=== PATIENT | female | born 1985 | race Caucasian/White ===

== ENCOUNTER 2023-08-24 00:32 | Day surgery (SDC) | payer OTHER, SELFPAY ==
--- NOTE | 2023-08-16 10:40 | SUR.PREOP ---
Report to the Outpatient Waiting Room, entrance under the green pavilion located off [facility], at time 1130 on date 08/24/23. Planned Procedure Time: 1330. Time changes happen often and if your time is changed the preop area will call you the afternoon before. - You and your visitor will be asked to self-screen and do not enter if you have any COVID symptoms. - A mask is optional within the hospital at this time. Patients may have clear liquids (water, carbonated beverages, clear teas, apple juice) until 3 hours prior to surgery with a maximum of 20 ounces. - NO CLEAR LIQUIDS AFTER 1030 - No food from midnight until time of surgery - Infants may have breast milk until 4 hours before surgery, infant formula 6 hours prior to surgery. - Children will be allowed to drink immediately following surgery. If applicable, please bring a bottle or sippy cup to assist with drinking. Juice, water, soda, and popsicles are readily available. For infants on formula, please bring formula the day of surgery. Pacifiers are allowed. Take the following medications with a SIP of water the morning of surgery: FLUOXETINE DO NOT STOP ANY OF YOUR OTHER PRESCRIPTION MEDICATIONS PRIOR TO SURGERY ?EXCEPT THE FOLLOWING Medications to discontinue per physician N/A Date to take last dose Please no make-up, nail trinidadian, hairspray, perfume, deodorant, or body powder the day of surgery. No jewelry (including any body piercings) or valuables the day of surgery, leave them at home. Please take a shower or bath the night before, or the morning of, surgery with an antibacterial soap. Wear comfortable, loose fitting clothing. Children are encouraged to wear pajamas. - Jewelry must be removed prior to entering the operating room. Rings and piercings that are not removed may be cut off. - The hospital will not accept responsibility for valuables. - Please leave all valuables, including medications, at home the day of surgery. If you are going home after surgery, a licensed automobile drivers must drive you home. - NO public transportation without another adult if you receive anesthesia. - We recommend that an adult stay with you for 24 hours following discharge. - We also recommend that you do not drive, make important decision, drink alcoholic beverages, or take any drugs that were not prescribed by your health care provider for at least 24 hours after your discharge time. For Pediatric surgeries, we recommend two adults accompany the child home. Follow any additional instructions given to you from your surgeon. If you or anyone in your household have experienced Covid symptoms in the past week, please notify your surgeon or the nurse liaison at the phone number below for possible testing. Telephone instructions given to DARRYN RANGEL and asked if any additional questions and then verbalized understanding. Patient advised to call surgeon office or pre surgery nurse liaison [phone] if any additional questions.
[2023-08-16 10:49] VITALS: BMI 28.1
[2023-08-24 12:18] VITALS: BP 109/72; PULSE 68; RESP 18; TEMP 36.2; O2SAT 100
[2023-08-24] MEDS: LACTATED RINGERS 1,000 ML 30 ML IV CONT (12:54)
--- NOTE | 2023-08-24 13:47 | P.PNAN_ITS ---
Anes - Initial Pre Proc Eval Procedure: Operation Date: 08/24/23 14:00 Proposed Procedures p Excision of Vaginal Cyst - Ok Chavira MD Date/Time: 08/24/23 13:47 Surgeon: Ok Chavira MD Pre Op Diagnosis: Cyst of Vagina Patient Data Age: 38 Gender: F Height: 1.63 m Weight: 74.8 kg Last Vital Signs Temp 36.2 C L 08/24/23 12:18 Pulse 68 08/24/23 12:18 Resp 18 08/24/23 12:18 BP 109/72 08/24/23 12:18 Pulse Ox 100 08/24/23 12:18 O2 Del Method Room Air 08/24/23 12:18 Allergies Allergy/AdvReac Type Severity Reaction Status Date / Time No Known Allergies Allergy Verified 08/24/23 12:17 Home Medications Medication Instructions Recorded Confirmed Type fluoxetine 20 mg capsule 20 mg PO DAILY 08/16/23 08/24/23 History Patient hx anesthesia problems: none Family hx anesthesia problems: none Results Review: All pre-operative results and documents have been reviewed as part of the pre-operative evaluation. [facility] Past Medical History Medical History (Updated 08/24/23 @ 13:51 by Nick Angeles MD) Anxiety Overweight Surgical History Surgical History (Updated 08/24/23 @ 13:51 by Nick Angeles MD) H/O laparoscopy History of appendectomy Social History Social History Smoking status: Never smoker Alcohol intake: current Drinks per week: 2 Living arrangements: with family Spiritual care concerns: No Anes - Eval Final PreProcedure Day of Procedure 08/24/23 13:47 Patient weight: overweight Heart: regular rate and rhythm Lungs: clear to auscultation Airway: Mallampati scale class II Neurological: alert and oriented Last oral intake: >/= 8 hours ASA classification: II Emergent: no Anesthetic plan: proceed Anesthesia type and monitoring: general GIVS and standard monitoring Results Review: All pre-operative results and documents have been reviewed as part of the pre- operative evaluation. Informed Consent: The patient's anesthetic plan and its attendant risks and benefits were discussed with the patient/family/POA. Questions were solicited and answers provided to the satisfaction of the patient/family/POA.
--- NOTE | 2023-08-24 14:05 | WPDHPUPDATE1 ---
History and Physical Update Update Date/Time: 08/24/23 14:05 History and Physical has been reviewed, including an updated exam of the patient. There are NO changes in the patient's condition. Risks, benefits, and alternatives have been discussed and questions answered. Patient agrees to proceed with procedure.
[2023-08-24] MEDS: ACETAMINOPHEN 500 MG TABLET 1000 MG PO (14:13)
[2023-08-24] MEDS: LIDO 1%/EPINEPHRINE 1:100,000 50 ML VIAL 8 ML INFILTRATE (14:29)
[2023-08-24 15:15] VITALS: BP 107/63; PULSE 74; RESP 16; O2SAT 92
--- NOTE | 2023-08-24 15:24 | W.PM.PROC2 ---
Procedure Note - Detailed Date of Procedure 08/24/23 Pre-op Diagnosis Cyst of Vagina Post-op Diagnosis Same ( Sandra's duct cyst) Procedure Performed marsupialization of Sandra's duct Surgeon Ok Chavira MD Anesthesia MAC Indications vaginal cyst Description of Procedure the patient was taken to the operating room. She was prepped and draped in the dorsal lithotomy position after induction of MAC anesthesia. The Sandra's duct cyst was palpated and grasped with Allis clamps. It was injected with lidocaine. A linear 7 mm incision was made along the surface of the Sandra's duct. Mucus was expressed. A 3-0 Vicryl was used to run around the cut surface in a baseball stitch fashion. Brief cautery was applied after incision was made. Bleeding was minimal. When this was completed the patient was taken recovery room stable conditions. Sponge lap needle counts were correct x2. She tolerated the procedure well. Estimated Blood Loss 15 Complications No immediate complications
[2023-08-24 15:45] VITALS: BP 102/53; PULSE 61; RESP 16
[2023-08-24] MEDS: SCOPOLAMINE 1 MG PATCH 1 PATCH TRANSDERM (15:58)
[2023-08-24] MEDS: diphenhydrAMINE HCl INJ 50 MG/ML VIAL 25 MG IV PUSH (15:58)
[2023-08-24 16:15] VITALS: BP 113/63; PULSE 64; RESP 16
[2023-08-24 16:40] VITALS: BP 114/70; PULSE 67; RESP 16
== END 2023-08-24 16:41 | disposition home or self-care (01) ==
PROVIDERS: PCP Hospitalist; Visit Provider Obstetrics & Gynecology
PROC: (CPT 58999; principal; 2023-08-24 14:00)
DX: Q52.4 Other congenital malformations of vagina (principal)
CPT/HCPCS: 58999; A9270; J1100; J1200; J2250; J2405; J2704; J3010; J7120